=== PATIENT | male | born 1965 ===

== ENCOUNTER 2018-03-23 07:39 | Emergency (ER) | payer MEDICARE ==
[2018-03-23 07:46] VITALS: PULSE 78; TEMP 97.8
--- NOTE | 2018-03-23 08:34 | RAD ---
Chest x-ray two views History: Cough. Comparison: None available. Findings: Hyperinflation suggestive for COPD and or emphysematous changes. Small nodular density at the medial right lung base may represent vessel on end versus small nodule. Tortuous aorta. Degenerative changes in the spine with paravertebral osteophytes. Suture anchors in the right proximal humerus. Impression: Hyperinflation suggestive for COPD and or emphysematous changes. Small nodular density at the medial right lung base may represent vessel on end versus small nodule. Tortuous aorta. Degenerative changes in the spine with paravertebral osteophytes. Suture anchors in the right proximal humerus.
--- NOTE | 2018-03-23 08:38 | C.PDOC ---
History Of Present Illness 53 y/o M c PMHx asthma p/w cough x 2 days productive of yellow/green sputum. Reports thoracic pain only when coughing. Subjective fever yesterday. Denies chills, body aches, nausea, vomiting. Time Seen by Provider: 03/23/18 07:41 Chief Complaint (Nursing): Cough, Cold, Congestion Past Medical History Vital Signs: Last Vital Signs Temp 97.8 F 03/23/18 07:41 Pulse 78 03/23/18 07:41 Resp 20 03/23/18 07:41 BP 146/80 03/23/18 07:41 Pulse Ox 99 03/23/18 08:41 - Medical History PMH: Asthma Family History: States: No Known Family Hx - Social History Hx Alcohol Use: Yes Hx Substance Use: No - Immunization History Hx Tetanus Toxoid Vaccination: No Hx Influenza Vaccination: No Hx Pneumococcal Vaccination: No Review Of Systems Except As Marked, All Systems Reviewed And Found Negative. Respiratory: Negative for: Shortness of Breath Gastrointestinal: Negative for: Vomiting Physical Exam - Physical Exam Additional Physical Exam Comments: Gen: NAD Head: NC/AT Eyes: PERRL ENT: MMM Neck: Supple CV: Regular rate Lungs: CTA b/l Abd: Soft, NT Back: No CVA tenderness Skin: No rash Neuro: Alert, no focal deficit Extremities: No edema ED Course And Treatment O2 Sat by Pulse Oximetry: 99 Medical Decision Making Medical Decision Making: CXR Findings: Hyperinflation suggestive for COPD and or emphysematous changes. Small nodular density at the medial right lung base may represent vessel on end versus small nodule. Tortuous aorta. Degenerative changes in the spine with paravertebral osteophytes. Suture anchors in the right proximal humerus. Impression: Hyperinflation suggestive for COPD and or emphysematous changes. Small nodular density at the medial right lung base may represent vessel on end versus small nodule. Tortuous aorta. Degenerative changes in the spine with paravertebral osteophytes. Suture anchors in the right proximal humerus. Disposition - Disposition Disposition: HOME/ ROUTINE Disposition Time: 08:55 Condition: STABLE Additional Instructions: Findings: Hyperinflation suggestive for COPD and or emphysematous changes. Small nodular density at the medial right lung base may represent vessel on end versus small nodule. Tortuous aorta. Degenerative changes in the spine with paravertebral osteophytes. Suture anchors in the right proximal humerus. Impression: Hyperinflation suggestive for COPD and or emphysematous changes. Small nodular density at the medial right lung base may represent vessel on end versus small nodule. Tortuous aorta. Degenerative changes in the spine with paravertebral osteophytes. Suture anchors in the right proximal humerus. Prescriptions: Albuterol HFA [Ventolin HFA 90 mcg/actuation (8 g)] 2 puff IH Q6 #1 inhaler Benzonatate [Tessalon Perles] 200 mg PO TID #30 sgl Prednisone [Deltasone] 3 tab PO DAILY #15 tablet Instructions: Upper Respiratory Infection (ED) Forms: [employer] ([place]), Work Excuse - Clinical Impression Clinical Impression: Upper respiratory infection
[2018-03-23 09:36] VITALS: BP 131/84; RESP 18; O2SAT 98
== END 2018-03-23 09:36 | disposition home or self-care (01) ==
LOC: C.ER 07:39
DX: J06.9 Acute upper respiratory infection, unspecified (principal)
CPT/HCPCS: 71046; 96372; 99283; J1885

== ENCOUNTER 2018-05-14 10:41 | Emergency (ER) | payer MEDICARE ==
[2018-05-14 10:52] VITALS: BMI 25.1
[2018-05-14 10:54] VITALS: RESP 18
--- NOTE | 2018-05-14 12:07 | RAD ---
PROCEDURE: Radiographs of the left great toe. TECHNIQUE:: AP radiograph of the left foot, with oblique and lateral view of the left great toe. COMPARISON: None. FINDINGS: BONES: Normal. No fracture. JOINTS: Normal. SOFT TISSUES: Normal. OTHER FINDINGS: None. IMPRESSION: Normal left great toe radiographs.
[2018-05-14] MEDS ORDERED: Tmp-Smz 800 mg-160 mg DS Tab PO STA (12:26)
--- NOTE | 2018-05-14 12:29 | C.PDOC ---
History Of Present Illness 53 year old male presents to ED complaining of pain to his left great toe. Patient reports there were similar symptoms to his right great toe and was diagnosed with cellullitis. Denies trauma, injury, fever, chills. Time Seen by Provider: 05/14/18 11:28 Chief Complaint (Nursing): Lower Extremity Problem/Injury History Per: Patient History/Exam Limitations: no limitations Onset/Duration Of Symptoms: Days Current Symptoms Are (Timing): Still Present Recent travel outside of the [place]: No Past Medical History Reviewed: Historical Data, Nursing Documentation, Vital Signs Vital Signs: Last Vital Signs Temp 98.1 F 05/14/18 10:53 Pulse 96 H 05/14/18 10:53 Resp 18 05/14/18 10:53 BP 128/85 05/14/18 10:53 Pulse Ox 99 05/14/18 10:53 - Medical History PMH: Asthma Surgical History: No Surg Hx Family History: States: No Known Family Hx - Social History Hx Alcohol Use: Yes Hx Substance Use: No - Immunization History Hx Tetanus Toxoid Vaccination: No Hx Influenza Vaccination: No Hx Pneumococcal Vaccination: No Review Of Systems Except As Marked, All Systems Reviewed And Found Negative. Musculoskeletal: Positive for: Foot Pain (left great toe.) Physical Exam - Physical Exam Appears: Non-toxic, No Acute Distress Skin: Normal Color, Warm, Dry Head: Atraumatic, Normacephalic Eye(s): bilateral: Normal Inspection, PERRL, EOMI Nose: Normal Oral Mucosa: Moist Chest: Symmetrical Cardiovascular: Rhythm Regular, No Murmur Respiratory: Normal Breath Sounds, No Rales, No Rhonchi, No Wheezing Gastrointestinal/Abdominal: Normal Exam, Soft, No Tenderness Extremity: Other (erythema and tenderness to left great toe.) Extremity: Bilateral: Atraumatic ED Course And Treatment O2 Sat by Pulse Oximetry: 99 Disposition - Disposition
--- NOTE | 2018-05-14 12:29 | C.PDOC ---
History Of Present Illness 53 year old male presents to ED complaining of pain to his left great toe. Patient reports there were similar symptoms to his right great toe and was diagnosed with cellullitis. Denies trauma, injury, fever, chills. Time Seen by Provider: 05/14/18 11:28 Chief Complaint (Nursing): Lower Extremity Problem/Injury History Per: Patient History/Exam Limitations: no limitations Onset/Duration Of Symptoms: Days Current Symptoms Are (Timing): Still Present Recent travel outside of the [place]: No Past Medical History Reviewed: Historical Data, Nursing Documentation, Vital Signs Vital Signs: Last Vital Signs Temp 98.1 F 05/14/18 10:53 Pulse 96 H 05/14/18 10:53 Resp 18 05/14/18 10:53 BP 128/85 05/14/18 10:53 Pulse Ox 99 05/14/18 12:30 - Medical History PMH: Asthma Surgical History: No Surg Hx Family History: States: No Known Family Hx - Social History Hx Alcohol Use: Yes Hx Substance Use: No - Immunization History Hx Tetanus Toxoid Vaccination: No Hx Influenza Vaccination: No Hx Pneumococcal Vaccination: No Review Of Systems Except As Marked, All Systems Reviewed And Found Negative. Musculoskeletal: Positive for: Foot Pain (great left toe pain) Physical Exam - Physical Exam Appears: Non-toxic, No Acute Distress Skin: Warm, Dry Head: Atraumatic, Normacephalic Eye(s): bilateral: Normal Inspection, PERRL, EOMI Nose: Normal Chest: Symmetrical Cardiovascular: Rhythm Regular, No Murmur Respiratory: Normal Breath Sounds, No Rales, No Rhonchi, No Wheezing Gastrointestinal/Abdominal: Soft, No Tenderness Extremity: Other (tenderness and erythema to left great toe.) Extremity: Bilateral: Atraumatic Neurological/Psych: Oriented x3, Normal Speech ED Course And Treatment O2 Sat by Pulse Oximetry: 99 (RA) Pulse Ox Interpretation: Normal Medical Decision Making Medical Decision Making: Impression: Cellulitis Plan * Ibuprofen * Bactrim Disposition Counseled Patient/Family Regarding: Studies Performed, Diagnosis, Need For Followup, Rx Given - Disposition Referrals: Podiatry Clinic [Outside] Disposition: HOME/ ROUTINE Disposition Time: 12:28 Condition: STABLE Additional Instructions: follow up with podiatry within 2 days call to make an appointment take medications as prescribed return to ER if symptoms worsens or progress Prescriptions: Naproxen [Naprosyn] 500 mg PO BID PRN #16 tab PRN Reason: Pain, Moderate (4-7) Sulfamethoxazole/Trimethoprim [Bactrim DS 800 mg-160 mg] 1 tab PO BID #20 tab Instructions: Cellulitis (Skin Infection), Adult (DC) Forms: General Discharge Instructions, [facility] (Sinhala) - Clinical Impression Clinical Impression: Toe pain - Scribe Statement The provider has reviewed the documentation as recorded by the Yumiko Eddy Patrick Provider Attestation: All medical record entries made by the Yumiko were at my direction and personally dictated by me. I have reviewed the chart and agree that the record accurately reflects my personal performance of the history, physical exam, medical decision making, and the department course for this patient. I have also personally directed, reviewed, and agree with the discharge instructions and disposition.
[2018-05-14] MEDS ORDERED: Tmp-Smz 800 mg-160 mg DS Tab ONE (12:31)
[2018-05-14 12:39] VITALS: BP 124/79; PULSE 79; TEMP 97.4; O2SAT 97
== END 2018-05-14 12:58 | disposition home or self-care (01) ==
LOC: C.ER 10:41
DX: M79.675 Pain in left toe(s) (principal)